=== PATIENT | male | born 1935 | race Caucasian/White ===

== ENCOUNTER 2017-02-08 12:16 | Inpatient (IN) | payer OTHER ==
[~2017-02-08] VITALS: Ht 182.9 cm; Wt 88.8 kg
[2017-02-08 16:32] VITALS: BP 123/58
[2017-02-08] MEDS ORDERED: ALLOPURINOL100 MG PO (17:11)
[2017-02-08] MEDS ORDERED: ASPIR 8181 M1 PO (17:12)
[2017-02-08] MEDS ORDERED: LIPITOR80 MG PO (17:12)
[2017-02-08] MEDS ORDERED: ELIQUIS5 MG PO (17:13)
[2017-02-08] MEDS ORDERED: ESOMEPRAZOLE MA40 MG PO (17:14)
[2017-02-08] MEDS ORDERED: FUROSEMIDE80 MG PO (17:15)
[2017-02-08] MEDS ORDERED: GAVISCON ES CH1 EACH PO (17:15)
[2017-02-08] MEDS ORDERED: LOPRESSOR25 MG PO (17:18)
[2017-02-08] MEDS ORDERED: CENTRUM SILVER1 EAC5 PO (17:19)
[2017-02-08] MEDS ORDERED: ROXICODONE5 MG PO (17:19)
[2017-02-08] MEDS ORDERED: CARDIOSTEROL C1 EACH PO (17:20)
[2017-02-08] MEDS ORDERED: ARTIFICIAL TEAR15 M1 BOTH EYES (17:22)
[2017-02-08] MEDS ORDERED: FLOMAX0.4 MG PO (17:23)
[2017-02-08] MEDS ORDERED: KLOR-CON M2020 MEQ PO (17:24)
[2017-02-08] MEDS ORDERED: PRESERVISIO1 CAPSULE PO (17:29)
[2017-02-08 23:50] VITALS: BP 122/64
[2017-02-09 05:54] VITALS: BP 122/64
[2017-02-09 07:19] LABS: HEMATOCRIT 27.3 % (38.0-50.0); MCH 35.5 PG (29.0-34.0); MCHC 33.3 G/DL (30.0-36.0); MCV 106.6 FL (86-99); MEAN PLAT.VOLUME 9.7 uM^3 (9.0-12.4); PLATELET COUNT 224 K/uL (156-360); RBC DIS.WIDTH-SD 52.1 % (39-53); RED BLOOD COUNT 2.56 M/uL (4.00-5.50); WHITE BLOOD COUNT 6.3 K/uL (4.1-10.2)
[2017-02-09 07:45] LABS: ALKALINE PHOSPHATASE 59 IU/L (3-129); ANION GAP 9 MEQ/L (2-14); CHLORIDE 101 MEQ/L (99-109); GFR ESTIMATE (CALCULATED) > 59 mL/min/; GLUCOSE 92 mg/dL (70-99); POTASSIUM 4.3 MEQ/L (3.7-5.4); SAMPLE HEMOLYSIS CHECK 0; SAMPLE ICTERIC CHECK 0; SAMPLE LIPEMIA CHECK 0; SODIUM 137 MEQ/L (136-147); UREA NITROGEN (BUN) 14 mg/dL (9-23)
[2017-02-09 16:40] VITALS: BP 114/64
[2017-02-10 05:48] VITALS: BP 112/58
[2017-02-10 15:48] VITALS: BP 128/60
[2017-02-11 05:16] VITALS: BP 114/56
[2017-02-11 15:36] VITALS: BP 105/56
[2017-02-12 05:21] VITALS: BP 113/60
[2017-02-12 15:13] VITALS: BP 115/58
[2017-02-13 04:38] VITALS: BP 110/56
[2017-02-13 15:18] VITALS: BP 114/58
[2017-02-14 05:08] VITALS: BP 112/62
[2017-02-14 15:08] VITALS: BP 115/56
[2017-02-15 06:03] VITALS: BP 106/56
[2017-02-15 07:50] VITALS: BP 115/59
[2017-02-15 15:55] VITALS: BP 119/61
[2017-02-16 04:42] VITALS: BP 114/59
[2017-02-16 16:11] VITALS: BP 109/58
[2017-02-17 05:10] VITALS: BP 116/63
[2017-02-17 07:10] LABS: EOSINOPHIL (%) 0.9 % (0-5); EOSINOPHIL COUNT 0.1 K/uL (0-0.3); HEMATOCRIT 29.1 % (38.0-50.0); IMMATURE GRANULOCYTE (%) 0.4 % (0.0-0.7); INSTRUMENT ABS NEUTROPHIL CT 5.6 K/uL; LYMPHOCYTE COUNT 1.2 K/uL (1.0-2.8); MCH 34.8 PG (29.0-34.0); MCHC 33.3 G/DL (30.0-36.0); MCV 104.3 FL (86-99); MEAN PLAT.VOLUME 9.5 uM^3 (9.0-12.4); MONOCYTE (%) 12.8 % (3-12); NEUTROPHIL (%) 70.3 % (45-76); NEUTROPHIL COUNT 5.6 K/uL (1.8-6.4); PLATELET COUNT 261 K/uL (156-360); RBC DIS.WIDTH-CV 13.6 % (11.8-14.6); RBC DIS.WIDTH-SD 51.7 % (39-53); RED BLOOD COUNT 2.79 M/uL (4.00-5.50); WHITE BLOOD COUNT 7.9 K/uL (4.1-10.2)
[2017-02-17 07:37] LABS: ALKALINE PHOSPHATASE 83 IU/L (3-129); ANION GAP 9 MEQ/L (2-14); CHLORIDE 96 MEQ/L (99-109); GFR ESTIMATE (CALCULATED) > 59 mL/min/; GLUCOSE 91 mg/dL (70-99); POTASSIUM 3.6 MEQ/L (3.7-5.4); SAMPLE HEMOLYSIS CHECK 0; SAMPLE ICTERIC CHECK 0; SAMPLE LIPEMIA CHECK 0; SODIUM 135 MEQ/L (136-147); TOTAL BILIRUBIN 1.1 MG/DL (0.0-1.0); UREA NITROGEN (BUN) 10 mg/dL (9-23)
[2017-02-17 16:14] VITALS: BP 114/59
[2017-02-18 05:21] VITALS: BP 105/62
[2017-02-18 15:54] VITALS: BP 130/65
[2017-02-19 05:34] VITALS: BP 113/56
[2017-02-19 15:21] VITALS: BP 108/62
[2017-02-20 04:59] VITALS: BP 118/66
[2017-02-20 06:41] LABS: HEMATOCRIT 29.5 % (38.0-50.0); MCH 35.3 PG (29.0-34.0); MCHC 33.9 G/DL (30.0-36.0); MCV 104.2 FL (86-99); MEAN PLAT.VOLUME 9.5 uM^3 (9.0-12.4); PLATELET COUNT 239 K/uL (156-360); RBC DIS.WIDTH-CV 13.7 % (11.8-14.6); RED BLOOD COUNT 2.83 M/uL (4.00-5.50); WHITE BLOOD COUNT 8.7 K/uL (4.1-10.2)
[2017-02-20 07:09] LABS: ANION GAP 11 MEQ/L (2-14); CHLORIDE 94 MEQ/L (99-109); GFR ESTIMATE (CALCULATED) > 59 mL/min/; GLUCOSE 93 mg/dL (70-99); POTASSIUM 3.4 MEQ/L (3.7-5.4); SAMPLE HEMOLYSIS CHECK 0; SAMPLE ICTERIC CHECK 0; SAMPLE LIPEMIA CHECK 0; SODIUM 133 MEQ/L (136-147); UREA NITROGEN (BUN) 15 mg/dL (9-23)
[2017-02-20 15:00] VITALS: BP 117/62
[2017-02-21 05:54] VITALS: BP 112/62
[2017-02-21 06:45] LABS: HEMATOCRIT 28.9 % (38.0-50.0); MCH 36.2 PG (29.0-34.0); MCHC 34.9 G/DL (30.0-36.0); MCV 103.6 FL (86-99); MEAN PLAT.VOLUME 10.5 uM^3 (9.0-12.4); PLATELET COUNT 293 K/uL (156-360); RBC DIS.WIDTH-CV 13.7 % (11.8-14.6); RBC DIS.WIDTH-SD 52.6 % (39-53); RED BLOOD COUNT 2.79 M/uL (4.00-5.50); WHITE BLOOD COUNT 8.3 K/uL (4.1-10.2)
[2017-02-21 06:55] LABS: ANION GAP 10 MEQ/L (2-14); CHLORIDE 96 MEQ/L (99-109); GFR ESTIMATE (CALCULATED) > 59 mL/min/; GLUCOSE 97 mg/dL (70-99); POTASSIUM 3.6 MEQ/L (3.7-5.4); SAMPLE HEMOLYSIS CHECK 0; SAMPLE ICTERIC CHECK 0; SAMPLE LIPEMIA CHECK 0; SODIUM 134 MEQ/L (136-147); UREA NITROGEN (BUN) 18 mg/dL (9-23)
[2017-02-21 15:45] VITALS: BP 108/59
[2017-02-22 04:32] VITALS: BP 100/59
[2017-02-22 04:54] VITALS: BP 106/61
[2017-02-22] MEDS ORDERED: FLOMAX0.4 MG PO (11:05)
[2017-02-22] MEDS ORDERED: ALLOPURINOL300 MG PO (11:05)
[2017-02-22] MEDS ORDERED: K-DUR20 MEQ PO (11:05)
[2017-02-22] MEDS ORDERED: LOPRESSOR25 MG PO (11:05)
[2017-02-22] MEDS ORDERED: FUROSEMIDE80 MG PO (11:05)
== END 2017-02-22 14:34 | DRG 949 ==
LOC: 3WEST 12:16
PROVIDERS: Physical Medicine & Rehabilitation Pain Medicine; Psychiatry & Neurology Neurology
PROC: F07M0ZZ Range of Motion and Joint Mobility Treatment of Musculoskeletal System - Whole Body (ICD-10-PCS; principal; 2017-02-08)
DX: Z48.89 Encounter for other specified surgical aftercare (principal); R53.1 Weakness; R48.2 Apraxia; I25.10 Atherosclerotic heart disease of native coronary artery without angina pectoris; Z95.1 Presence of aortocoronary bypass graft; E83.51 Hypocalcemia; E87.1 Hypo-osmolality and hyponatremia; I48.0 Paroxysmal atrial fibrillation; K21.9 Gastro-esophageal reflux disease without esophagitis; I10 Essential (primary) hypertension; E78.5 Hyperlipidemia, unspecified; E87.6 Hypokalemia; D62 Acute posthemorrhagic anemia; H35.30 Unspecified macular degeneration; R33.8 Other retention of urine; M10.9 Gout, unspecified; I45.9 Conduction disorder, unspecified; E77.8 Other disorders of glycoprotein metabolism; Z95.0 Presence of cardiac pacemaker; Z87.891 Personal history of nicotine dependence; Z86.718 Personal history of other venous thrombosis and embolism; Z80.7 Family history of other malignant neoplasms of lymphoid, hematopoietic and related tissues
CPT/HCPCS: 70450; 71010; 80048; 80053; 85025; 85027; 93005; 97110 GO; 97530 GP